=== PATIENT | male | born 1965 | race Caucasian/White ===

== ENCOUNTER → 2020-05-19 13:19 | Outpatient (BNVA) | payer MEDICARE, SELFPAY | PROVIDERS: Family Provider Family Medicine; PCP Family Medicine; Visit Provider Family Medicine | DX: M25.512 Pain in left shoulder (principal); Z98.890 Other specified postprocedural states | CPT/HCPCS: 73030 ==

== ENCOUNTER 2020-06-28 09:09 | Outpatient (CLI) | payer MEDICARE, SELFPAY ==
--- NOTE | 2020-06-28 09:30 | MR_ITS ---
WS: [id number] MRI LEFT SHOULDER NONCONTRAST TECHNIQUE: Sagittal T2, coronal T1, T2 and proton density imaging. Axial gradient PDE imaging. CLINICAL INFORMATION: M25.512 - Pain in left shoulder COMPARISON: None. FINDINGS: Moderate degenerative arthritis of the AC joint with mild downsloping acromion. Subacromial spurring. Synovial thickening at the AC joint with mild edema. Chronic thinning of the distal supraspinatus. T endinopathy in the distal supraspinatus with a small intrasubstance insertional tear. No full-thickne ss tears. Normal infraspinatus. Normal teres minor. Intrasubstance tear involving the distal subscapularis tend on with medial dislocation of the biceps tendon from the bicipital groove proximally. Distal insertio nal tear subscapularis. Degenerative fraying of the glenoid labrum. Glenoid labrum appears grossly normal. Normal biceps labr al anchor. Intra-articular biceps tendon appears intact. Impression MR/MR shoulder LT wo con* [id number] IMPRESSION: 1. Advanced degenerative arthritis at the AC joint with edema and hypertrophic spurring. 2. Intrasubstance tear and insertional tear involving the distal supraspinatus with tendinopathy. 3. Prominent intrasubstance tears involving the subscapularis tendon distally and at the insertion. Associated medial dislocation of the biceps tendon proxim ally. 4. Normal intra-articular biceps tendon. 5. Glenoid labrum appears grossly normal.
== END 2020-06-28 09:10 | disposition home or self-care (01) ==
LOC: RADSHAW 09:13
PROVIDERS: Family Provider Family Medicine; PCP Family Medicine; Visit Provider Family Medicine
DX: M19.012 Primary osteoarthritis, left shoulder (principal); M75.102 Unspecified rotator cuff tear or rupture of left shoulder, not specified as traumatic; S46.912A Strain of unspecified muscle, fascia and tendon at shoulder and upper arm level, left arm, initial encounter; X58.XXXA Exposure to other specified factors, initial encounter
CPT/HCPCS: 73221

== ENCOUNTER → 2021-01-19 15:24 | Outpatient (BNVA) | payer OTHER, SELFPAY | PROVIDERS: Family Provider Family Medicine; PCP Family Medicine; Visit Provider Family Medicine | DX: R63.4 Abnormal weight loss (principal); Z87.820 Personal history of traumatic brain injury | CPT/HCPCS: 36415; 80053; 84439; 84443; 85025 ==

== ENCOUNTER → 2022-11-05 10:20 | Outpatient (BNVA) | payer OTHER, SELFPAY | PROVIDERS: Family Provider Family Medicine; PCP Family Medicine; Visit Provider Nurse Practitioner Family | DX: E78.5 Hyperlipidemia, unspecified (principal) | CPT/HCPCS: 80053; 80061; 84443 ==

== ENCOUNTER → 2023-03-07 16:28 | Outpatient (BNVA) | payer OTHER, SELFPAY | PROVIDERS: Family Provider Family Medicine; PCP Family Medicine; Visit Provider Emergency Medicine | DX: U07.1 COVID-19 (principal) | CPT/HCPCS: 87426 ==

== ENCOUNTER → 2023-05-03 16:07 | Outpatient (BNVA) | payer OTHER, SELFPAY | PROVIDERS: Family Provider Family Medicine; PCP Family Medicine; Visit Provider Nurse Practitioner Family | DX: Z51.81 Encounter for therapeutic drug level monitoring (principal); Z87.820 Personal history of traumatic brain injury | CPT/HCPCS: 80053; 80061 ==

== ENCOUNTER → 2024-08-10 09:30 | Outpatient (BNVA) | payer MEDICARE, SELFPAY | PROVIDERS: PCP Nurse Practitioner Family; Visit Provider Nurse Practitioner Family | DX: R07.89 Other chest pain (principal) | CPT/HCPCS: 93005 ==

== ENCOUNTER → 2025-01-28 08:56 | Outpatient (BNVA) | payer OTHER, SELFPAY | PROVIDERS: PCP Nurse Practitioner Family; Visit Provider Nurse Practitioner Family | DX: E78.5 Hyperlipidemia, unspecified (principal); E55.9 Vitamin D deficiency, unspecified | CPT/HCPCS: 80053; 80061; 82306; 84443; 85025 ==